=== PATIENT | male | born 1985 | race Caucasian/White ===

== ENCOUNTER 2017-06-15 15:33 | Emergency (ER) | payer MEDICAID, OTHER ==
[2017-06-15 17:42] VITALS: BP 123/82
--- NOTE | 2017-06-16 21:46 | ED ---
Aubrey Rendon Natalie, scribed for Ashwin Rodríguez MD on 06/15/17 at 1734 . Medical Screening - HPI Summary HPI Summary: The pt is a 31 y/o M presenting to the ED c/o needing prescriptions starting two days ago. He was arrested for a DUI and was just released from [place] [facility] two days ago. Hes supposed to have 30 day supply of medications, but was not provided for him because the doctor who was prescribing him the medication was sanctioned for Medicaid. He went to [facility] were he was given one dose of the medication, and then he was told to come to the ED. He needs 0.2 mg Clonidine 3x day for HTN. He doesnt have any hx for high cholesterol. - History of Current Complaint Chief Complaint: EDPrescriptionNeeded Stated Complaint: HTN Onset/Duration: Started Days Ago - two days ago PMH/Surg Hx/FS Hx/Imm Hx Previously Healthy: No Endocrine/Hematology History: Denies: Hx Diabetes Cardiovascular History: Reports: Hx Hypertension Denies: Hx Congestive Heart Failure, Other Cardiovascular Problems/Disorders Respiratory History: Denies: Other Respiratory Problems/Disorders GI History: Reports: Other GI Disorders - hernia hydroseal at age 5 History: Denies: Hx Renal Disease Musculoskeletal History: Reports: Hx Back Problems - lower back pain Psychiatric History: Reports: Hx Anxiety, Hx Panic Disorder Denies: Hx Eating Disorder, Hx of Violent Episodes Against Others - Surgical History Surgery Procedure, Year, and Place: hernia hydroseal at age 5 - Immunization History Date of Tetanus Vaccine: PT STATED HE WAS NOT GOING TO ANSWER ANY QUESTIONS Date of Influenza Vaccine: PT STATED HE WAS NOT GOING TO ANSWER ANY QUESTIONS Infectious Disease History: No Infectious Disease History: Denies: Traveled Outside the [place] in Last 30 Days - Family History Known Family History: Negative: Cardiac Disease, Diabetes - Social History Alcohol Use: None Alcohol Amount: few times a month Substance Use Type: Reports: None Substance Use Comment - Amount & Last Used: PT REFUSED TO ANSWER Hx Tobacco Use: Yes Smoking Status (MU): Current Every Day Smoker Type: Cigarettes Amount Used/How Often: 1pack a day Have You Smoked in the Last Year: Yes Review of Systems Negative: Fever Positive: Other - no changes in HTN All Other Systems Reviewed And Are Negative: Yes Physical Exam - Summary Physical Exam Summary: Appearance: Well-appearing, Well-nourished Skin: Warm, dry Eyes: Normal, Extraocular movements intact, PERRL HENT: Normal, Normal cephalic, atraumatic, Moist mucous membranes Neck: Supple, nontender Respiratory: Clear to auscultation Cardiovascular: Normal, S1 and S2, No murmurs, Normal bilateral pulses Abdomen: Soft, nontender, no distension Bowel: Present Musculoskeletal: Normal, Strength/ROM Intact, Normal strength and sensation to upper extremities bilaterally Neurological: Normal, A&Ox3 Psychiatric: Normal Triage Information Reviewed: Yes Vital Signs On Initial Exam: Initial Vitals Temp Pulse Resp BP Pulse Ox 98.5 F 75 16 135/70 99 06/15/17 15:35 06/15/17 15:35 06/15/17 15:35 06/15/17 15:35 06/15/17 15:35 Vital Signs Reviewed: Yes - [place] Coma Scale Coma Scale Total: 15 Diagnostics - Vital Signs Vital Signs Temp Pulse Resp BP Pulse Ox 06/15/17 15:35 98.5 F 75 16 135/70 99 - Laboratory Lab Statement: Any lab studies that have been ordered have been reviewed, and results considered in the medical decision making process. Course/Dx - Course Assessment/Plan: alert and oriented, given precription as per home dose - Diagnoses Provider Diagnoses: Medication refill Discharge - Discharge Plan Condition: Stable Disposition: HOME Prescriptions: cloNIDine TAB* [Catapres 0.1 MG TAB*] 0.2 mg PO TID #90 tab Patient Education Materials: Hypertension (ED) Referrals: Neal Oates MD [Medical Doctor] - Jennyfer Montes MD [Medical Doctor] - No Primary Care Phys,NOPCP [Primary Care Provider] - Norm Wilson MD [Medical Doctor] - Additional Instructions: PLEASE RETURN IMMEDIATELY TO THE ER IF YOU HAVE ANY WORSENING OR CONCERNING SYMPTOMS PLEASE MAKE AN APPOINTMENT TO BE SEEN BY YOUR PRIMARY CARE DOCTOR WITHIN 1 WEEK The documentation as recorded by the Aubrey prado Natalie accurately reflects the service I personally performed and the decisions made by me, Ashwin Rodríguez MD.
== END 2017-06-15 17:40 | disposition home or self-care (01) ==
LOC: ED 15:33
DX: I10 Essential (primary) hypertension (principal); Z76.0 Encounter for issue of repeat prescription; F17.210 Nicotine dependence, cigarettes, uncomplicated
CPT/HCPCS: 99282

== ENCOUNTER 2018-02-21 09:37 | Emergency (ER) | payer MEDICAID ==
[2018-02-21 09:47] VITALS: BP 151/85
--- NOTE | 2018-02-21 10:03 | UC ---
Abdominal Pain Male HPI - HPI Summary HPI Summary: 32 yo male presents with right sided abdominal pain/cramping for the last month. Movement worsens his pain. Says that he has diarrhea and loose stools at times, but this has been for about a year since he started Zoloft and has not changed recently. 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 He has not taken anything for his pain. Denies fever , chills, SOB, chest pain, n/v, dysuria, blood in stool. No Famhx of cancer or IBD. He is also asking for a refill on his Clonidine today as his PCP recently discharged him for not attending appointments. - History of Current Complaint Chief Complaint: UCAbdominalPain Stated Complaint: ABDOMINAL PAIN Time Seen by Provider: 02/21/18 10:03 Hx Obtained From: Patient Severity Initially: Mild Severity Currently: Mild Pain Intensity: 4 Pain Scale Used: 0-10 Numeric - Allergies/Home Medications Allergies/Adverse Reactions: Allergies Allergy/AdvReac Type Severity Reaction Status Date / Time sulfamethoxazole Allergy Anaphylatic Verified 02/21/18 09:48 [From Bactrim] Shock trimethoprim [From Bactrim] Allergy Anaphylatic Verified 02/21/18 09:48 Shock Home Medications: Home Medications Methylphenidate HCl [Ritalin] 5 mg PO DAILY PRN 02/21/18 [History Confirmed ] Sertraline HCl [Zoloft] 100 mg PO DAILY 02/21/18 [History Confirmed 02/21/18] PMH/Surg Hx/FS Hx/Imm Hx - Additional Past Medical History Additional PMH: ADHD HTN - Surgical History Surgical History: Yes Surgery Procedure, Year, and Place: hernia hydroseal at age 5 - Family History Known Family History: Negative: Cardiac Disease, Diabetes - Social History Occupation: Employed Full-time Lives: With Family Alcohol Use: None Alcohol Amount: few times a month Substance Use Type: None Smoking Status (MU): Current Every Day Smoker Type: Cigarettes Amount Used/How Often: 1pack a day Have You Smoked in the Last Year: Yes Household Exposure Type: Cigarettes - Immunization History Most Recent Influenza Vaccination: apr 2013 Most Recent Tetanus Shot: 09/19/13 Most Recent Pneumonia Vaccination: unk Review of Systems Constitutional: Negative Skin: Negative Respiratory: Negative Cardiovascular: Negative Gastrointestinal: Abdominal Pain Genitourinary: Negative Neurovascular: Negative Neurological: Negative Psychological: Negative All Other Systems Reviewed And Are Negative: Yes Physical Exam - Summary Physical Exam Summary: GENERAL: NAD. WDWN. No pain distress. SKIN: No rashes, sores, lesions, or open wounds. NECK: Supple. Nontender. No lymphadenopathy. CHEST: CTAB. No r/r/w. No accessory muscle use. Breathing comfortably and in no distress. CV: RRR. Without m/r/g. Pulses intact. Cap refill <2seconds ABDOMEN: Soft. NTTP. No distention or guarding. No CVA tenderness. Bowel sounds present NEURO: Alert. PSYCH: Age appropriate behavior. Triage Information Reviewed: Yes Vital Signs: Initial Vital Signs Temp 97.1 F 02/21/18 09:42 Pulse 85 02/21/18 09:42 Resp 18 02/21/18 09:42 BP 151/85 02/21/18 09:42 Pulse Ox 99 02/21/18 09:42 Vital Signs Reviewed: Yes Abd Pain Male Course/Dx - Course Course Of Treatment: Discussed with Dr. Bentley - will draw for CBC and CMP and have him f/u with [facility] or a new PCP for further investigation. - Differential Dx/Clinical Impression Provider Diagnoses: Abdominal pain Discharge - Sign-Out/Discharge Documenting (check all that apply): Patient Departure All imaging exams completed and their final reports reviewed: No Studies - Discharge Plan Condition: Stable Disposition: HOME Prescriptions: cloNIDine TAB* [Catapres 0.1 MG TAB*] 0.1 mg PO TID #90 tab Patient Education Materials: Abdominal Pain (ED) Referrals: No Primary Care Phys,NOPCP [Primary Care Provider] - Additional Instructions: If you develop a fever, shortness of breath, chest pain, new or worsening symptoms - please call your PCP or go to the ED. Your blood pressure was high at todays visit. Please see your primary provider within 4 weeks for recheck and re-evaluation. 1) Please schedule a follow up with [facility] or a new PCP as soon as possible - Billing Disposition and Condition Condition: STABLE Disposition: Home
[2018-02-21 16:28] LABS: ABS Basophils 0.1 10^3/ul (0-0.2); ABS Eosinophils 0.2 10^3/ul (0-0.6); ABS Lymphocytes 2.2 10^3/ul (1.0-4.8); ABS Monocytes 0.7 10^3/ul (0-0.8); ABS Neutrophils 5.7 10^3/ul (1.5-7.7); ABS Nucleated RBC 0 10^3/ul; Eosinophil % 2.1 % (0-6); Hematocrit 49 % (42-52); Hemoglobin 16.8 g/dl (14.0-18.0); Lymphocyte % 24.6 % (25-47); Mean Corpuscular HGB Conc 34 g/dl (31-36); Mean Corpuscular Hemoglobin 30 pg (27-31); Mean Corpuscular Volume 88 fL (80-94); Mean Platelet Volume 10.4 um3 (7.4-10.4); Nucleated Red Blood Cells % 0.1; Platelet Count 216 10^3/ul (150-450); Red Blood Count 5.55 10^6/ul (4.00-5.40); Red Cell Distribution Width 13 % (10.5-15); White Blood Count 8.9 10^3/ul (3.5-10.8)
[2018-02-21 18:12] LABS: EGFR Non-African American 117.4 (>60)
== END 2018-02-21 10:40 | disposition home or self-care (01) ==
LOC: UCEAST 09:37
DX: R10.9 Unspecified abdominal pain (principal); F17.210 Nicotine dependence, cigarettes, uncomplicated; Z88.2 Allergy status to sulfonamides
CPT/HCPCS: 36415; 80053; 85025; 99201; G0463

== ENCOUNTER 2018-03-17 13:11 | Emergency (ER) | payer MEDICAID, OTHER ==
[2018-03-17 13:36] VITALS: BP 114/69
[2018-03-17] MEDS ORDERED: Tetracaine 0.5% OPTH.SOL 4 ML* 1 DROP BTL BOTH EYES ONE (13:49)
[2018-03-17] MEDS: Fluorescein Sodium TOPICAL* 1 MG TEST STRIP OPHTHALMIC ONE ×2 (13:54→13:55)
--- NOTE | 2018-03-17 14:12 | UC ---
Eye Complaint HPI - HPI Summary HPI Summary: 32-year-old male comes in with a chief complaint of bilateral eye pain. 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 He woke up with the middle the night with bilateral eye pain. It was severe at that time it's improved slightly since then. No complaint of loss of vision. Lites and keeping his eyes open makes the pain worse. Darkness and keeping his eyes closed improve the pain. He was not grinding and did not think is any foreign body in the eye. He also has run out of his clonidine 0.1 mg by mouth 3 times a day for his hypertension. He's been unable to get into see his primary care physician - History of Current Complaint Chief Complaint: UCEye Stated Complaint: EYE INJURY PAIN FROM WELDING Time Seen by Provider: 03/17/18 13:45 Pain Intensity: 3 - Allergies/Home Medications Allergies/Adverse Reactions: Allergies Allergy/AdvReac Type Severity Reaction Status Date / Time sulfamethoxazole Allergy Anaphylatic Verified 03/17/18 13:37 [From Bactrim] Shock trimethoprim [From Bactrim] Allergy Anaphylatic Verified 03/17/18 13:37 Shock Home Medications: Home Medications Ibuprofen TAB* [Motrin TAB* 800 MG] 800 mg PO Q6H PRN 03/17/18 [History Confirmed 03/17/18] PMH/Surg Hx/FS Hx/Imm Hx Cardiovascular History: Hypertension - Surgical History Surgical History: Yes Surgery Procedure, Year, and Place: hernia hydroseal at age 5 - Family History Known Family History: Negative: Cardiac Disease, Diabetes - Social History Alcohol Use: None Alcohol Amount: few times a month Substance Use Type: None Substance Use Comment - Amount & Last Used: PT REFUSED TO ANSWER Smoking Status (MU): Heavy Every Day Tobacco Smoker Type: Cigarettes Amount Used/How Often: 1pack a day Have You Smoked in the Last Year: Yes Household Exposure Type: Cigarettes - Immunization History Most Recent Influenza Vaccination: apr 2013 Most Recent Tetanus Shot: 09/19/13 Most Recent Pneumonia Vaccination: unk Review of Systems Constitutional: Negative Skin: Negative Eyes: Other - SEE HPI ENT: Negative Respiratory: Negative Cardiovascular: Negative Gastrointestinal: Negative Motor: Negative Neurovascular: Negative Musculoskeletal: Negative Neurological: Negative Psychological: Negative Is Patient Immunocompromised?: No All Other Systems Reviewed And Are Negative: Yes Physical Exam Triage Information Reviewed: Yes Appearance: Well-Appearing, Well-Nourished, Pain Distress - MILD Vital Signs: Initial Vital Signs Temp 98.9 F 03/17/18 13:29 Pulse 85 03/17/18 13:29 Resp 16 03/17/18 13:29 BP 114/69 03/17/18 13:29 Pulse Ox 99 03/17/18 13:29 Vital Signs Reviewed: Yes Eyes: Positive: Conjunctiva Inflamed, Other: - Foreseen stain did not show any corneal abrasions. No hyphema pupils are equal and reactive. No foreign body seen. ENT Exam: Normal ENT: Positive: Normal ENT inspection, Pharynx normal Neck exam: Normal Neck: Positive: Supple Respiratory: Positive: No respiratory distress Musculoskeletal Exam: Normal Musculoskeletal: Positive: Strength Intact, ROM Intact Neurological Exam: Normal Neurological: Positive: Alert, Muscle Tone Normal Psychological Exam: Normal Psychological: Positive: Age Appropriate Behavior Skin Exam: Normal Eye Complaint Course/Dx - Differential Dx/Diagnosis Provider Diagnoses: B/L PHOTOKERATITIS. HTN Discharge - Sign-Out/Discharge Documenting (check all that apply): Patient Departure All imaging exams completed and their final reports reviewed: No Studies - Discharge Plan Condition: Stable Disposition: HOME Prescriptions: cloNIDine TAB* [Catapres 0.1 MG TAB*] 0.1 mg PO TID #90 tab Glycerin/Propylene Glycol [Tgt Lubricant Eye Drops/M 1-0.3 %] 1 drop OP Q2HR PRN #30 ml PRN Reason: Pain Tobramycin 0.3% OPHTH.DIMITRY* 1 drop BOTH EYES Q4H #1 btl Patient Education Materials: Corneal Flash Hoskins (ED) Referrals: [facility] [place] [facility] [Outside] Stewart Persaud MD [Medical Doctor] - - Billing Disposition and Condition Condition: STABLE Disposition: Home
== END 2018-03-17 14:28 | disposition home or self-care (01) ==
LOC: UCEAST 13:11
DX: H16.133 Photokeratitis, bilateral (principal); X32.XXXA Exposure to sunlight, initial encounter; Y93.89 Activity, other specified; Y92.009 Unspecified place in unspecified non-institutional (private) residence as the place of occurrence of the external cause; I10 Essential (primary) hypertension; Z88.1 Allergy status to other antibiotic agents; F17.210 Nicotine dependence, cigarettes, uncomplicated
CPT/HCPCS: 99212; A9270-GY; G0463

== ENCOUNTER 2019-04-05 13:47 | Emergency (ER) | payer MEDICAID, OTHER ==
[2019-04-05 13:58] VITALS: BP 131/80
--- NOTE | 2019-04-05 14:20 | UC ---
Throat Pain/Nasal Joao HPI - HPI Summary HPI Summary: 33 yo smoker with a 5 day history of malaise, myalgias, cough and sore throat. Was beginning to feel better, but today has worsening fatigue and cough. 8 mo has pneumonia (also has heart disease). - History of Current Complaint Chief Complaint: UCGeneralIllness Stated Complaint: COUGH CHEST CONGESTION Time Seen by Provider: 04/05/19 14:10 Hx Obtained From: Patient Onset/Duration: Gradual Onset, Lasting Days - 5 Severity: Moderate Pain Intensity: 0 Cough: Productive Associated Signs & Symptoms: Positive: Hoarseness, Nasal Discharge - Epiglottits Risk Factors Epiglottis Risk Factors: Negative - Allergies/Home Medications Allergies/Adverse Reactions: Allergies Allergy/AdvReac Type Severity Reaction Status Date / Time sulfamethoxazole Allergy Anaphylatic Verified 04/05/19 13:52 [From Bactrim] Shock trimethoprim [From Bactrim] Allergy Anaphylatic Verified 04/05/19 13:52 Shock PMH/Surg Hx/FS Hx/Imm Hx Previously Healthy: Yes - Surgical History Surgical History: Yes Surgery Procedure, Year, and Place: hernia hydroseal at age 5 - Family History Known Family History: Positive: Unknown - grew up in foster care. Negative: Cardiac Disease, Diabetes - Social History Occupation: Employed Full-time Lives: With Family Alcohol Use: None Alcohol Amount: few times a month Substance Use Type: None Substance Use Comment - Amount & Last Used: PT REFUSED TO ANSWER Smoking Status (MU): Heavy Every Day Tobacco Smoker Type: Cigarettes Amount Used/How Often: 1pack a day Have You Smoked in the Last Year: Yes Household Exposure Type: Cigarettes - Immunization History Most Recent Influenza Vaccination: apr 2013 Most Recent Tetanus Shot: 09/19/13 Most Recent Pneumonia Vaccination: unk Review of Systems All Other Systems Reviewed And Are Negative: Yes Constitutional: Positive: Fatigue Skin: Positive: Negative ENT: Positive: Sore Throat, Nasal Discharge, Sinus Congestion Respiratory: Positive: Cough. Negative: Shortness Of Breath Cardiovascular: Negative: Palpitations, Chest Pain Gastrointestinal: Positive: Negative, Abdominal Pain - gets bouts of right flank pain, not present now, occur episodically over the past months. Relieved with increased water intake. No nausea or vomiting. Genitourinary: Negative: Dysuria, Hematuria, Frequency, Urgency Motor: Positive: Negative Neurovascular: Positive: Negative Musculoskeletal: Positive: Negative Neurological: Positive: Negative Psychological: Positive: Negative Is Patient Immunocompromised?: No Physical Exam Triage Information Reviewed: Yes Appearance: No Pain Distress, Ill-Appearing - congested, looks unwell. Vital Signs: Initial Vital Signs Temp 97.8 F 04/05/19 13:55 Pulse 84 04/05/19 13:55 Resp 16 04/05/19 13:55 BP 131/80 04/05/19 13:55 Pulse Ox 100 04/05/19 13:55 Eyes: Positive: Conjunctiva Clear ENT: Positive: Pharyngeal erythema, TM dull - bilaterally Neck: Positive: Supple, Nontender, No Lymphadenopathy Respiratory: Positive: Decreased breath sounds, Rhonchi - both lower lung christian. Negative: Crackles, Wheezing Abdomen Description: Positive: Nontender - no tenderness in right flank, no masses felt., No Organomegaly, Soft Musculoskeletal Exam: Normal Neurological Exam: Normal Psychological Exam: Normal Skin Exam: Normal Throat Pain/Nasal Course/Dx - Course Course Of Treatment: azithromycin for treatment of bronchitis. Referral for PCP to evaluate abdominal sx and establish care. - Differential Dx/Diagnosis Differential Diagnosis/HQI/PQRI: Tonsillitis Provider Diagnosis: Bronchitis Discharge ED - Sign-Out/Discharge Documenting (check all that apply): Patient Departure All imaging exams completed and their final reports reviewed: No Studies - Discharge Plan Condition: Stable Disposition: HOME Prescriptions: Azithromyxin PETRONA (NF) [Z-Petrona (Zithromax) 250 mg tabs #6] 2 tab PO .TODAY, THEN 1 DAILY #6 tab Patient Education Materials: Acute Bronchitis (ED) Referrals: No Primary Care Phys,NOPCP [Primary Care Provider] - [facility] [place] [facility] [Outside] Additional Instructions: Please tke azithromycin for treatment of bronchitis. Over the counter Delsym is a good cough suppressant to use. Please call [facility] Mares to establish with a primary care physician to evaluate episodes of right flank pain. - Billing Disposition and Condition Condition: STABLE Disposition: Home
== END 2019-04-05 14:35 | disposition home or self-care (01) ==
LOC: UCEAST 13:47
DX: J40 Bronchitis, not specified as acute or chronic (principal); F17.210 Nicotine dependence, cigarettes, uncomplicated; M79.10 Myalgia, unspecified site; R53.83 Other fatigue; R53.81 Other malaise; Z88.2 Allergy status to sulfonamides; Z88.1 Allergy status to other antibiotic agents
CPT/HCPCS: 99202; G0463

== ENCOUNTER 2019-09-12 12:25 | Emergency (ER) | payer MEDICAID ==
[2019-09-12 12:44] VITALS: BP 144/82
--- NOTE | 2019-09-12 12:50 | UC ---
General HPI - HPI Summary HPI Summary: 33-year-old male presents requesting a refill on his blood pressure medication. Patient states that he has been out of his clonidine for approximately 5-6 months. Reports that he was incarcerated for a DUI and when released 2018 was provided a 3 month supply of his medications which she tried to stretch out by taking a decreased dosage. He does not currently have a primary care provider. States he has plans to move to [place] for work but his plans are on hold for now because of the current COVID-19 situation. Denies headache , visual disturbances, dizziness, lightheadedness, slurred or difficulty speaking, weakness, numbness, or tingling of the extremities, chest pain, palpitations, or shortness of breath. - History of Current Complaint Chief Complaint: UCMedRefill Stated Complaint: NEEDS PRESCRIPTION REFILL Time Seen by Provider: 09/12/19 12:40 Hx Obtained From: Patient Pain Intensity: 0 - Allergy/Home Medications Allergies/Adverse Reactions: Allergies Allergy/AdvReac Type Severity Reaction Status Date / Time sulfamethoxazole Allergy Anaphylatic Verified 09/12/19 12:35 [From Bactrim] Shock trimethoprim [From Bactrim] Allergy Anaphylatic Verified 09/12/19 12:35 Shock Home Medications: Home Medications Cholecalciferol TAB* [Vitamin D TAB*] 09/12/19 [History] Multivitamin [One-Daily Multi-Vitamin] 1 each PO DAILY 09/12/19 [History Confirmed 09/12/19] cloNIDine TAB* [Catapres 0.1 MG TAB*] 0.1 mg PO BID #35 tab 09/12/19 [Rx] PMH/Surg Hx/FS Hx/Imm Hx Cardiovascular History: Hypertension - Surgical History Surgical History: Yes Surgery Procedure, Year, and Place: hernia hydroseal at age 5 - Family History Known Family History: Positive: Unknown - grew up in foster care. - Social History Occupation: Unemployed Lives: Alone Alcohol Use: None Alcohol Amount: few times a month Substance Use Type: None Substance Use Comment - Amount & Last Used: PT REFUSED TO ANSWER Smoking Status (MU): Current Every Day Smoker Type: Cigarettes Amount Used/How Often: 1/2 ppd Have You Smoked in the Last Year: Yes Household Exposure Type: Cigarettes - Immunization History Most Recent Influenza Vaccination: apr 2013 Most Recent Tetanus Shot: 09/19/13 Most Recent Pneumonia Vaccination: unk Review of Systems All Other Systems Reviewed And Are Negative: Yes Constitutional: Positive: Negative Respiratory: Positive: Negative Cardiovascular: Positive: Negative Gastrointestinal: Positive: Negative Genitourinary: Positive: Negative Musculoskeletal: Positive: Negative Neurological/Mental Status: Positive: Negative Is Patient Immunocompromised?: No Physical Exam - Summary Physical Exam Summary: GENERAL APPEARANCE: Well developed, well nourished, alert and cooperative, and appears to be in no acute distress. CARDIAC: Normal S1 and S2. No S3, S4 or murmurs. Rhythm is regular. There is no peripheral edema, cyanosis or pallor. Extremities are warm and well perfused. Capillary refill is less than 2 seconds. Peripheral pulses intact. LUNGS: Clear to auscultation without rales, rhonchi, wheezing or diminished breath sounds. ABDOMEN: Positive bowel sounds. Soft, nondistended, nontender. No guarding or rebound. No masses or hepatosplenomegally. MUSKULOSKELETAL: ROM intact to all extremities. No joint erythema or tenderness. Normal muscular development. Normal gait. NEUROLOGICAL: Strength and sensation symmetric and intact throughout. SKIN: Skin normal color, texture and turgor with no lesions or eruptions. Triage Information Reviewed: Yes Vital Signs: Initial Vital Signs Temp 98 F 09/12/19 12:43 Pulse 77 09/12/19 12:43 Resp 16 09/12/19 12:43 BP 144/82 09/12/19 12:43 Pulse Ox 100 09/12/19 12:43 Vital Signs Reviewed: Yes Course/Dx - Course Course Of Treatment: 33-year-old male presents requesting a refill on his blood pressure medication. Patient states that he has been out of his clonidine for approximately 5-6 months. Reports that he was incarcerated for a DUI and when released 2018 was provided a 3 month supply of his medications which she tried to stretch out by taking a decreased dosage. He does not currently have a primary care provider. States he has plans to move to [place] for work but his plans are on hold for now because of the current COVID-19 situation. Denies headache , visual disturbances, dizziness, lightheadedness, slurred or difficulty speaking, weakness, numbness, or tingling of the extremities, chest pain, palpitations, or shortness of breath. Afebrile. Patient's blood pressure was elevated at 144/82 and remaining vital signs were stable. Exam was overall unremarkable. A chart review showed a previous visit in the [facility] emergency room on 06/15/2017 with a similar request for a refill of his clonidine after being released from [facility] prior. He was given a 15 day supply of his clonidine at that time and instructed to follow up with primary care. I am a little concerned with this patient's history of noncompliance especially with him being on clonidine. I have discussed with the patient that I will be willing to give him a short-term prescription for his clonidine but we 'll start him on a lower dose considering the length of time he has been without his medication and will have him follow-up with the [facility] within 2 weeks for further evaluation and continuation of his medication. Anticipatory guidance and warning symptoms are reviewed with the patient. Verbalizes understanding and agrees with plan of care. - Diagnoses Provider Diagnosis: Hypertension, Prescription refill Discharge ED - Sign-Out/Discharge Documenting (check all that apply): Patient Departure All imaging exams completed and their final reports reviewed: No Studies - Discharge Plan Condition: Stable Disposition: HOME Prescriptions: cloNIDine TAB* [Catapres 0.1 MG TAB*] 0.1 mg PO BID #35 tab Patient Education Materials: Hypertension (ED) Referrals: No Primary Care Phys,NOPCP [Primary Care Provider] - [facility] [Outside] (Call Saturday for an appointment.) Additional Instructions: I have sent in a 2 week supply of your blood pressure medication. Be sure to take this as directed. Start clonidine 0.1 mg twice a day for 1 week. If you are tolerating this dose after 1 week and your blood pressure is still elevated you may increase your dose to 0.2 mg in the morning and 0.1 mg in the evening. Follow-up at the [facility] within 2 weeks for further evaluation and continuation of your blood pressure medication. Seek immediate medical attention in the emergency room if you develop sudden severe headache, visual disturbances, dizziness, lightheadedness, slurred or difficulty speaking, numbness, tingling, or weakness of the arms or legs, chest pain, shortness of breath, or any worsening of symptoms. - Billing Disposition and Condition Condition: STABLE Disposition: Home
== END 2019-09-12 13:13 | disposition home or self-care (01) ==
LOC: UCEAST 12:25
DX: I10 Essential (primary) hypertension (principal); Z76.0 Encounter for issue of repeat prescription; Z88.2 Allergy status to sulfonamides; F17.210 Nicotine dependence, cigarettes, uncomplicated
CPT/HCPCS: 99212; G0463